=== PATIENT | female | born 1965 | race Caucasian/White ===

== ENCOUNTER 2020-05-26 15:26 | Observation (INO) | payer OTHER ==
[~2020-05-26] VITALS: Ht 172.7 cm; Wt 109.1 kg
[~2020-05-26 15:26] MED LIST: AFRIN15 ML NS; ALBUTEROL2.5 MG/0.5 INH; ANGELIQ 0.25 M1 EACH PO; AUGMENTIN 875875 MG PO; AZITHROMYCIN 2250 MG PO; BACTROBAN22 GM TP; CEFDINIR300 MG PO; CEPHALEXIN 500500 M3 PO; CIPROFLOXACIN500 M1 PO; COMBIVENT INH; COZAAR 50 MG TA50 M1 PO; DIFLUCAN150 M1 PO; FLEXERIL PO; FOLIC ACID0.4 MG PO; FOLIC ACID1 MG PO; HYDROXYCHLOROQ200 M1 PO; KEFLEX500 MG PO; METHOTREXATE 22.5 M1 PER TUBE; MOBIC15 MG PO; MOBIC7.5 M1 PO; MUCUS RELIEF400 MG PO; NEBULIZER MISCELL; NEURONTIN 300300 M1 PO; NEURONTIN 300M300 M2 PO; NORCO 5-325 TA1 EACH PO; PAXIL10 MG PO; PERCOCET 5-3251 EACH PO; PERCOCET PO; PREDNISONE 20 M20 M1 PO; PROAIR HFA8.5 GM; ROBAXIN 750 MG750 M1 PO; ROBAXIN 750 MG750 MG PO; SUDAFED 12 HOU120 MG PO; TESSALON PERLE100 MG PO; TRAMADOL 50 MG50 MG PO; TRIPLE ANTIBI28.4 GM TP; ULTRAM 50MG TAB50 MG PO; VENLAFAXIN75 MG/1 T2 PO; VENTOLIN HFA 1818 GM INH; VITAMIN D3400 UNIT PO; WELLBUTRIN SR150 MG PO; XANAX 0.25 MG0.25 MG PO; XANAX1 MG PO; ZOFRAN4 MG PO; [UNRECOGNIZED DRUG - REMARK]
[2020-05-26 15:33] VITALS: BP 131/83
[2020-05-26] MEDS ORDERED: FLONASE 0.05%50 MCG NARES (15:38)
[2020-05-26] MEDS ORDERED: METHOCARBAMOL500 M2 PO (15:38)
[2020-05-26 16:21] LABS: ABSOLUTE BASOPHILS 0.1 thou/uL (0.0-0.2); ABSOLUTE EOSINOPHILS 0.2 thou/uL (0.0-0.7); ABSOLUTE LYMPHOCYTES 2.8 thou/uL (0.8-5.3); ABSOLUTE MONOCYTES 0.5 thou/uL (0.0-1.2); ABSOLUTE NEUTROPHILS 3.3 thou/uL (1.6-8.1); BASOPHILS 0.9 %; EOSINOPHILS 2.9 %; HEMATOCRIT 38.4 % (37.0-47.0); HEMOGLOBIN 13.3 gm/dL (12.0-15.0); LYMPHOCYTES 40.7 %; MCH 31.7 pg (26.0-34.0); MCHC 34.6 g/dL (28.0-37.0); MCV 91.6 fL (80.0-100.0); MONOCYTES 7.7 %; MPV 7.3 fl. (7.2-11.1); NUCLEATED RBCS 0 /100WBC; PLATELET COUNT* 249 thou/uL (150-400); POLYS 47.8 %; RBC 4.19 mil/uL (4.20-5.00); RDW-CV 11.7 % (10.5-14.5); WBC 6.9 thou/uL (4.0-11.0)
[2020-05-26 16:25] LABS: CALCIUM 8.1 mg/dL (8.5-10.1); CREATININE 0.8 mg/dL (0.6-1.3); POTASSIUM 3.5 mmol/L (3.5-5.1)
[2020-05-26 16:36] LABS: ALBUMIN 3.5 g/dL (3.4-5.0); TOTAL BILIRUBIN 0.3 mg/dL (<0.1-1.0); TOTAL PROTEIN 7.8 g/dL (6.4-8.2)
--- NOTE | 2020-05-26 17:12 | EKG ---
[place] [address] ELECTROCARDIOGRAM REPORT Name: BERYL ONEIL Room: [facility]#: [id number] Admission: 05/26/20 Attend Phys: Discharge: Date of : 67 Date of Service: 05/26/20 1538 Report #: [id number] THIS REPORT FOR: //name// [facility] ED Test Date: 2020-05-26 Test Time: 15:38:23 Pat Name: BERYL ONEIL Department: Room: Gender: F Director [place]: [facility] : 1965 Requested By: Edson Ivory Order Number: [id number] MD: Anshu Richardson Measurements Intervals Covert Rate: 105 P: 29 [place]: 166 QRS: -18 QRSD: 97 T: 50 QT: 345 QTc: 457 Interpretive Statements Sinus tachycardia artifact noted Borderline left axis deviation Anteroseptal infarct, age indeterminate Compared to ECG 07/02/2014 16:23:05 no change Electronically Signed On 05-26-2020 17:11:49 PRODUCT SAFETY ADMINISTRATOR by Anshu Richardson [email or web address] <ELECTRONICALLY SIGNED> By: Anshu Richardson MD, [facility] 05/26/20 1711 1538 1538 Anshu Richardson MD, [facility] /EPI
[2020-05-26] MEDS ORDERED: ENBREL50 MG/1 M1 SUBQ (18:03)
[2020-05-26] MEDS ORDERED: AMITRIPTYLINE H10 M3 PO (18:03)
[2020-05-26 21:15] VITALS: BP 130/81
[2020-05-26 21:45] VITALS: BP 127/70
[2020-05-26] MEDS ORDERED: NORTRIPTYLINE H75 M1 PO (21:59)
[2020-05-27 00:09] VITALS: BP 120/68
[2020-05-27 04:48] VITALS: BP 123/72
[2020-05-27 08:00] VITALS: BP 121/79
[2020-05-27] MEDS ORDERED: ASA81BEC PO (08:43)
[2020-05-27] MEDS ORDERED: PREDNISONE 10 M10 M1 PO (08:43)
[2020-05-27 10:27] LABS: CHOLESTEROL 155 mg/dL (<200); HDL CHOLESTEROL 41 mg/dL (>40); LDL CHOLESTEROL 97 mg/dL (<100); TC:HDL 3.8 Ratio (Not establshd); TRIGLYCERIDE 89 mg/dL (<150); VLDL 18 mg/dL (<40)
[2020-05-27 10:31] LABS: SERUM ASSESSMENT Clear
--- NOTE | 2020-05-27 16:55 | CARDNUC ---
[place] [address] CARDIAC NUCLEAR IMAGING REPORT Name: THADBERYL Barron Room: [address] MRayneRRayne#: [id number] Admission: 05/26/20 Attend Phys: Sean Back Discharge: Date of : 67 Date of Service: 05/27/20 1655 Report #: [id number] THIS REPORT FOR: cc: Edgar East MD, Bruce D. MD Liston, Michael J. MD [facility] ~ APPROVED REPORT Imaging Protocol: Stress Tc-99m/Rest Tc-99m 1 day Study performed: 05/27/2020 08:38:00 Indication: Chest pain Patient Location: In-Patient Room #: [facility] Stress Tech: Nuvia Sauer Stress Nurse: Dulce Otoole RN Ht: 5 ft 8 in Wt: 190 lbs BSA: 2.00 m2 BMI: 28.88 Medical History Medical History: HTN Medications: losartan Allergies: codeine, levofloxacin, promethazine, tetracycline Cardiac Risk Factors: HTN, FHX of CAD Exercise History: Physically active Resting Data Rest SPECT myocardial perfusion imaging was performed in supine position 30 minutes following the intravenous injection of 10.0 mCi of Tc-99m Sestamibi. Time of rest injection: 10:00 The images were gated to evaluate regional wall motion and calculate left ventricular ejection fraction. Administration Route: IV Administration Site: Right Arm Pharmacologic Stress Pharmacologic stress test was performed by injecting Regadenoson 0.4 mg IV push over 10-15 seconds immediately followed by the intravenous injection of 33.7 mCi of Tc-99m Sestamibi. Time of stress injection: 12:05 Administration Route: IV Administration Site: [place] [address] CARDIAC NUCLEAR IMAGING REPORT Name: BERYL ONEIL Room: [address] Juanpablo#: [id number] Admission: 05/26/20 Attend Phys: Sean Back Discharge: Date of : 67 Date of Service: 05/27/20 1655 Report #: [id number] Heart Rate at time of stress injection: 110 bpm. Gated Stress SPECT was performed 45 minutes after stress injection. Stress Test Details Stress Test: Pharmacologic stress testing performed using 0.4 mg of regadenoson per 5 mL given IV over 10 seconds. HR Max Heart Rate (APMHR): 166 bpm Resting HR: 96 bpm Target HR (85% APMHR): 141 bpm Max HR Achieved: 112 bpm % of APMHR: 67 Recovery HR: 103 bpm BP Resting BP: 124/88 mmHg Max BP: 108/83 mmHg Recovery BP: 132/82 mmHg ECG Resting ECG: Sinus Rhythm Stress ECG: Sinus Tachycardia ST Change: None Arrhythmia: None Recovery ECG: Sinus Rhythm Recovery ST Change: None Recovery Arrhythmia: None Clinical Reason for Termination: Completed protocol The patient tolerated Lexiscan infusion without significant cardiac symptoms. Nurse Comments pt too weak to walk on treadmill Stress ECG Conclusion The baseline twelve-lead EKG shows sinus rhythm with no significant ST segment or T wave abnormality. EKGs obtained during and post Lexiscan infusion show sinus rhythm and sinus tachycardia with no significant ST segment or T wave changes when compared to baseline. There were no stress-induced arrhythmias. Study Quality Study: Good Artifact: [place] [address] CARDIAC NUCLEAR IMAGING REPORT Name: BERYL ONEIL Room: [address]#: [id number] Admission: 05/26/20 Attend Phys: Sean Back Discharge: Date of : 67 Date of Service: 05/27/20 1655 Report #: [id number] Study Data At rest, the left ventricular ejection fraction was 79%.. Post stress, the left ventricular ejection was 82%.. TID = 1.05. Perfusion Perfusion images obtained at rest and post Lexiscan stress showed uniform uptake of the radioisotope throughout the myocardium. There were no defects to suggest infarct or ischemia. Wall Motion Normal left ventricular wall motion. Nuclear Conclusion ECG Findings: negative for ischemia Clinical Findings: negative for ischemia Nuclear Findings: negative for ischemia Exercise Capacity: not assessed Left Ventricular Function: normal Risk Study: low Myocardial perfusion images show no defect to suggest infarct or ischemia. Left ventricular systolic function appears normal on gated studies. This is a low risk study. <Conclusion> The baseline twelve-lead EKG shows sinus rhythm with no significant ST segment or T wave abnormality. EKGs obtained during and post Lexiscan infusion show sinus rhythm and sinus tachycardia with no significant ST segment or T wave changes when compared to baseline. There were no stress-induced arrhythmias. <ELECTRONICALLY SIGNED> By: Jose Pratt MD, FACC 05/27/20 1655 1655 1655 Jose Pratt MD, FACC /INF
[2020-05-27 16:59] VITALS: BP 121/79
== END 2020-05-27 17:55 | disposition home or self-care (01) ==
LOC: M.ERS 15:26 → M.2W 18:03 → M.TBA-ER 18:03 → M.2W 21:28
PROVIDERS: Emergency Medicine Emergency Medical Services; Internal Medicine; ADMIT Internal Medicine; ATTEND Internal Medicine
DX: J45.41 Moderate persistent asthma with (acute) exacerbation (principal); R07.89 Other chest pain; G43.909 Migraine, unspecified, not intractable, without status migrainosus; I10 Essential (primary) hypertension; M10.9 Gout, unspecified; M79.7 Fibromyalgia; E66.9 Obesity, unspecified; Z68.36 Body mass index [BMI] 36.0-36.9, adult; F31.9 Bipolar disorder, unspecified; G62.9 Polyneuropathy, unspecified; Z79.899 Other long term (current) drug therapy; Z20.828 Contact with and (suspected) exposure to other viral communicable diseases